=== PATIENT | male | born 1955 | race Caucasian/White ===

== ENCOUNTER 2019-12-17 08:52 | Outpatient (CLI) | payer MEDICARE ==
--- NOTE | 2019-12-17 11:50 | CT ---
CT ABDOMEN AND PELVIS WITH AND WITHOUT IV CONTRAST: Date: 12/17/2019 HISTORY: Prostate cancer. Patient had an allergic reaction to the IV contrast, which included hives, throat itchiness, and cough. The patient was given Benadryl. COMPARISON: None. FINDINGS: The lung bases are clear. The liver, spleen, pancreas, and adrenal glands appear normal. No calcified gallstones are seen. No calculi seen in the kidneys, ureters, or the urinary bladder. No hydroureteronephrosis is noted on either side. There is a 2.0 cm partially exophytic cyst arising from the left kidney. No enhancing r enal mass is seen on either side. There is normal contrast excretion into the ureters and the urinary bladder. No free air, free fluid, or lymphadenopathy seen in the abdomen or pelvis. There are vascular calcifi cations without evidence of aneurysmal dilatation of the abdominal aorta. There are degenerative escoto ges in the spine. No osteolytic or osteoblastic lesions are seen. There is a duodenal diverticulum. There is dilatation of the third and fourth portions of the duodenu m on the postcontrast images and not on the precontrast images, likely due to peristalsis. A normal a ppearing appendix is seen. There are bilateral fat-containing inguinal hernia. There are postop chirinos es in the lower lumbar spine. IMPRESSION: No evidence of metastatic disease. POS: OFF
[2019-12-17] MEDS ORDERED: Iopamidol 370 76% 100 ML VIAL ONE (13:31)
--- NOTE | 2019-12-17 13:56 | NM ---
Radionucleotide bone scan HISTORY: Prostate cancer. Initial staging. FINDINGS: Heterogeneous uptake at the shoulders, sternoclavicular joints, ankles and feet. Small foci over the groin, not overlying the bone, likely related to urine contamination. No pathologic uptake. IMPRESSION : No scintigraphic evidence of osseous metastasis.
== END 2019-12-17 08:53 | disposition home or self-care (01) ==
LOC: CT 08:52
PROVIDERS: ATTEND Urology
DX: C61 Malignant neoplasm of prostate (principal)
CPT/HCPCS: 74178; 78306; 82565; A9503; Q9967

== ENCOUNTER 2020-05-11 13:49 | Outpatient (CLI) | payer MEDICARE ==
--- NOTE | 2020-05-12 08:14 | MRI ---
MR OF THE PELVIS WITH AND WITHOUT CONTRAST INDICATION: Prostate cancer; pretreatment evaluation COMPARISON: None TECHNIQUE: Multiplanar, multisequence MR images were obtained of the pelvis with and without IV contr ast. 20 cc of MultiHance was utilized for the examination. The examination was reviewed on a separate [employer] 3-D workstation for multiplanar metric evaluation. FINDINGS: Prostate size: The prostate measured 3.7 x 3.1 x 3.2cm. 20.45 cc. Peripheral zone: No area of restricted diffusion is seen within the peripheral zone. There is a heter ogeneous T2 signal seen within the peripheral zone bilaterally right greater than left. There are more wedgelike regions of hypointensity seen within the right prostatic base laterally. No circumscri bed hypointense lesion is evident. Central zone: No suspicious signal abnormality or focal lesion. There is a central TURP defect presen t. Neural vasculature: No evidence of neurovascular invasion Regional lymphadenopathy: None Dynamic contrast enhancement: Negative. Osseous structures: No suspicious osseous lesion is identified. Additional findings: None.. IMPRESSION: 1. PIRADS 2- Low (clinically significant cancer is unlikely to be present.)
== END 2020-05-11 13:50 | disposition home or self-care (01) ==
LOC: TBSIIMAG 13:49
PROVIDERS: ATTEND Radiology Radiation Oncology
DX: C61 Malignant neoplasm of prostate (principal)
CPT/HCPCS: 72197; 82565